=== PATIENT | female | born 2000 | race Caucasian/White ===

== ENCOUNTER 2022-06-25 14:09 | Emergency (ER) | payer SELFPAY ==
[~2022-06-25] VITALS: Ht 157.5 cm; Wt 62.0 kg
[2022-06-25] MEDS ORDERED: AMOX/K CLAV875 M1 PO (16:10)
[2022-06-25 20:42] VITALS: BP 103/68
== END 2022-06-25 20:54 | disposition left against medical advice (07) | DRG 605 ==
LOC: ED 14:09
PROC: 0HQFXZZ Repair Right Hand Skin, External Approach (ICD-10-PCS; principal; 2022-06-25)
DX: S61.451A Open bite of right hand, initial encounter (principal); W54.0XXA Bitten by dog, initial encounter; Y92.007 Garden or yard of unspecified non-institutional (private) residence as the place of occurrence of the external cause; Z53.29 Procedure and treatment not carried out because of patient's decision for other reasons